=== PATIENT | female | born 1950 | race Caucasian/White ===

== ENCOUNTER 2017-03-16 13:13 | Inpatient (IN) | payer OTHER ==
[~2017-03-16] VITALS: Ht 154.9 cm; Wt 54.1 kg
--- NOTE | ~2017-03-16 | MR32 ---
[facility] A Service of [facility] RADIOLOGY TEXT RESULTS PATIENT: KUSH CRUZ LOCATION: [facility] : 51 UNIT #: [id number] AGE: [address]: TRACE LIGHT MD SEX: F ORDER DR: [id number] [place] [id number] [facility]. [place], [place] [address] [id number] I MR#: [id number] Acc #: [id number] NAME: KUSH CRUZ : 1950 SEX: F STUDY DATE/TIME: 03/16/2017 20:46 UNIT: C3A PCU ROOM: [facility] STUDY DESCRIPTION: MR Cervical Wo Contrast Attending Physician: Trace Light M.D. Ordering Physician: Physician Non-Staff Primary Care Physician: Shubham Soria M.D. MRI CENTER REPORT This report is preliminary unless electronic signature is present. EXAM Cervical MRI HISTORY Patient fell in the bathroom this morning. Right MCA infarct. The patient complains of neck pain after the fall. TECHNIQUE Multiplanar imaging of the cervical spine was performed with short and long TR. FINDINGS Alignment is satisfactory. Degenerative changes are seen throughout the cervical discs. At C3-4, there is mild central disc protrusion. There is no evidence of cord compression. This causes mild central canal narrowing. At C4-5, there is a large right paracentral disc herniation that contacts and slightly flattens the ventral cord to the right of midline. At C5-6, there is a left-sided disc herniation at the entrance to the foramen with left-sided exiting nerve root compression. This also displaces the cord to the right and results in moderately severe central stenosis. The C6-7 and C7-T1 levels are unremarkable. The cord is normal in size and signal. There is no evidence of marrow edema or paraspinous mass. IMPRESSION 1. Large right paracentral disc herniation C4-5. [facility] A Service of [facility] RADIOLOGY TEXT RESULTS PATIENT: KUSH CRUZ LOCATION: [facility] : 51 UNIT #: [id number] AGE: [address]: TRACE LIGHT MD SEX: F ORDER DR: 2. Moderately large left-sided disc herniation C5-6. 3. Mild central disc protrusion C3-4. 4. No evidence of fracture or cord lesion. STAT * RESULT Dictated by... Michael Leija M.D. THIS IS AN ELECTRONICALLY VERIFIED REPORT Michael Leija M.D. at 03/17/2017 3:03 PM MELISSA/darrell TD: 03/17/2017 09:02 JOB #: [id number] MRI CENTER REPORT Page 1 of 1 COPY
--- NOTE | ~2017-03-16 | DS ---
Unit #: [id number] #: [id number] Patient: KUSH CRUZ [id number] [address] [place], [place] [address] [id number] I MR#: [id number] NAME: KUSH CRUZ ROOM: 314 Age: 67 Sex: F Admission Date: 03/16/2017 : 1950 Discharge Date: 03/18/2017 Attending Physician: Marie Light M.D. Primary Care Physician: Shubham Soria M.D. DISCHARGE SUMMARY PRINCIPAL DIAGNOSES 1. Acute right internal carotid artery cerebrovascular accident with complete occlusion of M1 branch. Patient has subsequent left-sided weakness and left-sided facial droop and mild left-sided neglect. 2. Diabetes mellitus type 2, insulin requiring and uncontrolled. Hemoglobin A1c 10.8. 3. Hyperlipidemia, uncontrolled. 4. Hypertension, mildly uncontrolled. 5. Escherichia coli urinary tract infection. 6. High anion gap metabolic acidosis, secondary to starvation now resolved. 7. Right internal carotid atherosclerosis with 60% stenosis, currently being followed by vascular surgeon. 8. Anxiety. 9. Mildly overweight. 10. Fever, secondary to atelectasis. 11. Cervical degenerative disk disease with asymptomatic mild cord compression. 12. Dysphagia, secondary to stroke. CONSULTANTS 1. Dr. Quarles, Neurology. 2. Dr. Soto, Vascular Surgery. 3. Dr. Mata, Endocrinology. PROCEDURES 1. CT of the head without contrast on March 16, 2017 with chronic nonspecific white matter changes. 2. CT of cervical spine without contrast on March 16, 2017, with a right paracentral disk extrusion at C4-C5 causing jasb-nt-pfgxhjig right sided core compression, chronic appearing disk and osteophyte complexes C5-6 causing mild cord compression (left side predominant). 3. Chest x-ray on March 16, 2017 without acute findings. 4. MRI of the brain without contrast on March 16, 2017 with an acute infarct in the right MCA distribution. This is in the right lower frontal and upper temporal lobe around the sylvian fissure and insula. This measures 3.1 x 7 cm in transverse diameter and 2.5 superior to inferior. Slight compression of right lateral ventricle. 5. Moderate chronic ischemic changes around ventricles bilaterally. 6. MRI of cervical spine without contrast on March 16, 2017 with a large right paracentral disk herniation at C4-5. A moderately large left-sided disk herniation at C5-6. No evidence of fracture or cord lesion. 7. CT angiogram of head and neck on March 17, 2017 with abrupt Unit #: [id number] #: [id number] Patient: KUSH CRUZ occlusion of the right M1 segment consistent with distal embolization, poor collateralization noted, mixed calcified and noncalcified plaque at both carotid bifurcations with hemodynamically significant stenosis of 60% on the right, left is approximately 20%. 8. A two-dimensional echocardiogram is currently pending report. 9. Video swallow demonstrating dysphagia and communication deficit. CLINICAL HISTORY AND HOSPITAL COURSE Ms. Cruz is a 67-year-old female with a history of poorly controlled diabetes, hypertension, hyperlipidemia who presents with slurring of speech and facial droop. Time of onset was unclear upon presentation to the ER given patient was having some facial tingling the night prior to presentation. CT scan done in the emergency department was unremarkable and patient was not felt to be a candidate for Alteplase given questionable onset of symptoms. Patient was subsequently admitted for further evaluation. Dr. Quarles was consulted and patient underwent MRI of head and neck with findings as noted above. She did indeed have an acute stroke. She was placed on aspirin in addition to lipid lowering therapy and has been seen by endocrinology in regard to her poorly-controlled diabetes. Patient's deficits have improved slightly during hospitalization. She was seen by PT/OT who felt she was appropriate for [facility] and plan is to discharge to [facility] when bed is available. I have discussed with patient and her family significant modification of risk factors which include better sugar control, statin therapy, aspirin, and blood pressure control. CT angiogram of head and neck revealed some right-sided carotid stenosis. I am currently awaiting evaluation by vascular surgery regarding further intervention whether acutely or perhaps in the future. Patient was also found to have E. coli urinary tract infection. She was initially placed on Rocephin but given she is not swallowing, I will place her on Macrobid and complete a one-week course of antibiotic therapy. She is still significantly weak from her stroke, having difficulty with ambulation. For this reason, I am going to maintain a Banuelos catheter until ambulation improves at [facility] Rehab. Patient did develop a fever during hospitalization, but I suspect this is secondary to atelectasis. This has resolved and infectious workup with the exception of UTI has been negative. I will follow up blood cultures. Patient was seen in consultation by Dr. Mata given her poorly controlled sugars. Plan is for patient to follow up with Dr. Mata on an outpatient basis. She will be discharged on Levemir and NovoLog. I anticipate discharge to [facility] later today with the presumption that patient's pre-cert has been obtained and there are no plans for acute surgical intervention from vascular surgery. DISCHARGE CONDITION Stable. DISCHARGE STATUS Discharge to [facility] Rehab. DISCHARGE MEDICATIONS 1. Tylenol 325 mg p.o. q.4 hours p.r.n. for mild pain or fever. 2. Lexapro 10 mg at bedtime. Unit #: [id number] #: [id number] Patient: KUSH CRUZ 3. Meclizine 25 mg p.o. t.i.d. p.r.n. for dizziness. 4. Xanax 1 mg b.i.d. 5. Lipitor 40 mg at bedtime. 6. Levemir 25 units subcutaneously in the morning. 7. NovoLog medium dose sliding scale with meals. I will note patient will need to be placed on his scheduled dose of NovoLog once intake improves. 8. Aspirin 325 mg daily. 9. Macrobid 100 mg p.o. b.i.d. to stop after six days of therapy. Stop date is March 22, 2017. 10. Lisinopril 10 mg daily. DISCHARGE INSTRUCTIONS 1. The patient was instructed to follow a heart healthy constant carb diet. 2. She will continue Accu-Cheks a.c. and at bedtime at home. 3. She can increase her activity as tolerated. 4. Again, she will be discharged to rehab with her Banuelos until activity improves. At which point, it can be discontinued. FOLLOWUP The patient will follow up with Dr. Tre Baird of outpatient neurology upon discharge from [facility] Re[facility]. The patient should follow up with Dr. Mata upon discharge from [facility] as well for long-term sugar control. Patient will follow up with Dr. Soto of vascular surgery per his recommendations. Time spent on discharge today, 38 minutes. Dictated by... Lexy Aguillon M.D. MANUEL/yessica TD: 03/18/2017 13:46 JOB #: [id number] DISCHARGE SUMMARY Page 1 of 1 X Lexy Aguillon MD X DISCHARGE SUMMARY
--- NOTE | ~2017-03-16 | CT23 ---
[facility] A Service of [facility] RADIOLOGY TEXT RESULTS PATIENT: KUSH CRUZ LOCATION: [facility] 302-01 : 51 UNIT #: [id number] AGE: [address]: TRACE LIGHT MD SEX: F ORDER DR: [id number] [facility] [address] [facility] [facility] [place], [place] [address] [id number] I MR#: [id number] Acc #: [id number] NAME: KUSH CRUZ : 1950 SEX: F STUDY DATE/TIME: 03/17/2017 12:12 [facility] STUDY DESCRIPTION: CT Angio Neck Attending Physician: Trace Light M.D. Ordering Physician: Ashlyn Quarles M.D. Primary Care Physician: Shubham Soria M.D. MEDICAL IMAGING REPORT This report is preliminary unless electronic signature is present EXAM CT scan of the head and neck with contrast with carotid CT angiography. HISTORY Dizziness with falling on 03/16/2017. Right-sided headache for the past 2 days with slurred speech. TECHNIQUE Thin section imaging was obtained from the mid mediastinum to the top of head with contrast. 100 mL of Isovue was used. CT angiography was performed with thick sliding MIPs, curved planar reformats, and 3-D volumetric imaging with surface shaded and volume shaded display. This CT exam was performed with one or more of the following radiation dose reduction techniques: automatic exposure control, adjustment of mA and/or kV according to patient size, and iterative reconstruction. FINDINGS Extravascular structures are unremarkable. The CT angiographic study shows mild soft plaque and calcified plaque in the left subclavian artery proximally with stenosis of about 25%. Both vertebral arteries are widely patent with the left being dominant. There is minimal calcified plaque in the mid cervical portion of the left vertebral but it only narrows the lumen by about 20%. The distal vertebrals and basilar artery are widely patent. In the carotid circulation, there is plaque seen across both bifurcations. The plaque is both calcified and noncalcified. On the left side, there is about 20% stenosis by NASCET criteria. On the right side, the stenosis by NASCET criteria measures 60%. Both cervical internal carotid arteries are widely patent distally. [facility] A Service of [facility] RADIOLOGY TEXT RESULTS PATIENT: KUSH CRUZ LOCATION: C3A PC 302-01 : 51 UNIT #: [id number] AGE: [address]: TRACE LIGHT MD SEX: F ORDER DR: In the intracranial circulation, there is abrupt cutoff of the right M1 segment consistent with distal embolization. There is poor collateralization over the convexity. There is no evidence of aneurysm or vascular malformation. Mild atherosclerotic irregularity is seen in the posterior cerebral arteries proximally on both sides. IMPRESSION 1. Abrupt occlusion of the right M1 segment, consistent with distal embolization with poor collateralization. 2. Mixed calcified and noncalcified plaque at both bifurcations with a hemodynamically significant stenosis of 60% on the right. STAT * RESULT Dictated by... Michael Leija M.D. THIS IS AN ELECTRONICALLY VERIFIED REPORT Michael Leija M.D. at 03/17/2017 3:04 PM MELISSA/wicho TD: 03/17/2017 13:36 JOB #: [id number] MEDICAL IMAGING REPORT Page 1 of 1 COPY
--- NOTE | ~2017-03-16 | EKG ---
PATIENT: KUSH CRUZ UNIT #: [id number] Ventricular Rate: 86 BPM Atrial Rate: 86 BPM P-R Interval: 166 ms QRS Duration: 90 ms Q-T Interval: 390 ms QTC Calculation(Bezet): 466 ms P [place]: 64 degrees Calculated R [place]: 32 degrees Calculated T [place]: 65 degrees Diagnosis Line: Normal sinus rhythm Diagnosis Line: Normal ECG Diagnosis Line: When compared with ECG of 25-AUG-2016 08:48, Diagnosis Line: No significant change was found Diagnosis Line: Confirmed by CHEYANNE HARLEY MD ([id number]) on 03/17/2017 Diagnosis Line: 7:09:40 PM INTERPRETING MD: CRICKET CANTOR
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
--- NOTE | ~2017-03-16 | CT71 ---
[facility] A Service of [facility] RADIOLOGY TEXT RESULTS PATIENT: KUSH CRUZ LOCATION: C3A 314-01 : 52 UNIT #: [id number] AGE: [address]: Sima Jones MD SEX: F ORDER DR: [id number] [facility] [address] [facility]. [place], [place] [address] [id number] I MR#: [id number] Acc #: [id number] NAME: KUSH CRUZ : 1950 SEX: F STUDY DATE/TIME: 03/16/2017 13:43 UNIT: [facility] PCU ROOM: [facility] STUDY DESCRIPTION: CT Head Wo Contrast Attending Physician: Marie Light M.D. Ordering Physician: Gerardo Alatorre M.D. Primary Care Physician: Shubham Soria M.D. MEDICAL IMAGING REPORT This report is preliminary unless electronic signature is present EXAM Head CT, no contrast; 03/16/2017. COMPARISON 08/25/2016 PROCEDURE Axial unenhanced head CT. This CT exam was performed with one or more of the following radiation dose reduction techniques: automatic exposure control, adjustment of mA and/or kV according to patient size, and iterative reconstruction. CLINICAL HISTORY Left facial droop, new this morning. FINDINGS There are moderately extensive nonspecific white matter changes, but these appear stable when compared to the prior study. There is no hemorrhage or mass or hydrocephalus or extraaxial fluid collection or convincing evidence of acute ischemia. The extracranial soft tissues are normal, and the skull base and the calvaria are unremarkable. IMPRESSION Chronic nonspecific white matter changes. No interval change since 08/25/2016. No convincing acute abnormality. Dictated by... John Reyes M.D. THIS IS AN ELECTRONICALLY VERIFIED REPORT John Reyes M.D. at 03/25/2017 4:58 PM TEV/jt [facility] A Service of [facility] RADIOLOGY TEXT RESULTS PATIENT: KUSH CRUZ LOCATION: [facility]3A 314-01 : 52 UNIT #: [id number] AGE: [address]: Sima Jones MD SEX: F ORDER DR: TD: 03/16/2017 20:43 JOB #: [id number] MEDICAL IMAGING REPORT Page 1 of 1 COPY
--- NOTE | ~2017-03-16 | CT52 ---
[facility] A Service of [facility] RADIOLOGY TEXT RESULTS PATIENT: KUSH CRUZ LOCATION: [facility] 314-01 : 51 UNIT #: [id number] AGE: [address]: Sima Jones MD SEX: F ORDER DR: [id number] [facility] [address] [facility]. [place], [place] [address] [id number] I MR#: [id number] Acc #: [id number] NAME: KUSH CRUZ : 1950 SEX: F STUDY DATE/TIME: 03/16/2017 13:46 UNIT: [facility] PCU ROOM: [facility] STUDY DESCRIPTION: CT Cervical Spine Wo Cont Attending Physician: Marie Light M.D. Ordering Physician: Gerardo Alatorre M.D. Primary Care Physician: Shubham Soria M.D. MEDICAL IMAGING REPORT This report is preliminary unless electronic signature is present EXAM Cervical spine CT, no contrast, 03/16/2017 PROCEDURE Axial cervical spine CT without contrast, with multiplanar reformats. This CT exam was performed with one or more of the following radiation dose reduction techniques: Automatic exposure control, adjustment of mA and/or kV according to patient size, and iterative reconstruction. COMPARISON None HISTORY Neck pain for 2 months. FINDINGS There is a loss of lordosis and even a slight degenerative retrolisthesis at 5-6. There is some discogenic and uncovertebral arthropathy, as well as atlantodental degenerative change. The paraspinous tissues are remarkable only for atherosclerotic vascular calcification at the carotid bifurcations. At C2-3, there is no canal or foraminal stenosis. At C3-4, there is no canal stenosis and mild left and no right foraminal stenosis. At 4-5, there is a large right paracentral disc protrusion. This causes right-sided cord compression and probably causes effective at least mild right foraminal stenosis, but there is at least moderate bony left foraminal stenosis. At 5-6, there is a disc and osteophyte complex, canal stenosis, [facility] of [facility] RADIOLOGY TEXT RESULTS PATIENT: KUSH CRUZ LOCATION: [facility] 314-01 : 52 UNIT #: [id number] AGE: [address]: Sima Jones MD SEX: F ORDER DR: probably at least mild cord compression, with bsvxljho-pi-disqyn left and hits-zc-kwkmkzgf right foraminal stenosis. At 6-7 and 7-1, the canal and foramina are normal. IMPRESSION 1. In addition to degenerative changes, there is a right paracentral disc extrusion at 4-5 causing mild or probably rnfv-dh-dcgivapx right side cord compression at that level. 2. A more chronic-appearing disc and osteophyte complex at 5-6 also likely causes mild cord compression, left side predominant. See above for additional alwrr-qb-fhhkc details. Dictated by... John Reyes M.D. THIS IS AN ELECTRONICALLY VERIFIED REPORT John Reyes M.D. at 03/25/2017 4:58 PM TEV/psc TD: 03/16/2017 21:08 JOB #: [id number] MEDICAL IMAGING REPORT Page 1 of 1 COPY
--- NOTE | ~2017-03-16 | CO ---
Unit #: [id number] #: [id number] Patient: KUSH CRUZ [id number] [address] [address] [id number] I MR#: [id number] NAME: KUSH CRUZ ROOM: 314 Age: 67 Sex: F Admission Date: 03/16/2017 : 1950 Attending Physician: Marie Light M.D. Primary Care Physician: Shubham Soria M.D. Consultation Date: 03/18/2017 CONSULTATION REPORT REASON FOR CONSULTATION Cerebrovascular accident. HISTORY OF PRESENT ILLNESS This is a 67-year-old, female, admitted to [facility] after suffering a stroke on Tuesday. She reports that she had experienced TIA-type symptoms the week prior, at least three separate episodes. Each of these resolved and she did not seek medical care. On 03/16/2017, she reports she was getting out of the shower and had been feeling weak. She suffered a fall in the shower, but was able to gather herself enough to go to her primary care physician appointment that she had made in response to her transient ischemic attacks. While being seen she was told that they thought she was having a stroke and she was sent to the emergency room for evaluation and treatment. CTA imaging demonstrates that she has a 60% right internal carotid artery stenosis. PAST MEDICAL HISTORY 1. Diabetes mellitus, on insulin. 2. Depression. 3. Hyperlipidemia. PAST SURGICAL HISTORY 1. Hysterectomy. 2. Gallbladder. 3. Appendectomy. 4. Knee surgery. ALLERGIES Penicillins and sulfa drugs. MEDICATION LIST 1. Lantus 20 units subcu daily. 2. NovoLog sliding-scale insulin. 3. Xanax 1 mg p.o. twice daily. 4. Lexapro 10 mg p.o. at bedtime. 5. Meclizine 25 mg p.o. three times daily. Newly prescribed medications; 1. 325 mg aspirin. 2. 40 mg atorvastatin at bedtime. SOCIAL HISTORY The patient resides at home with her spouse. 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 She denies smoking; however, she has had many years of exposure to secondhand smoke as her spouse smokes. She denies alcohol or drug use. FAMILY HISTORY Mother and father both . Mother from a heart attack in her sleep. Father of lung cancer. REVIEW OF SYSTEMS CONSTITUTIONAL: Denies fever, chills, or sweats. EYES: Right-sided deviation with left-sided neglect. EAR, NOSE, MOUTH AND THROAT: Somewhat difficulty speaking. RESPIRATORY: Negative. CARDIOVASCULAR: Negative. GASTROINTESTINAL: Negative for nausea, vomiting or diarrhea. GENITOURINARY: The patient reports having a urinary tract infection. HEME/LYMPH: Negative. ENDOCRINE: Negative. MUSCULOSKELETAL: Decreased movement of the left side arm and leg. INTEGUMENTARY: Sore to her left thumb, where she fell on a blow dryer that was hot. NEUROLOGIC: Some trouble speaking and some difficulty with movement of the left side of the body. PSYCHIATRIC: History of depression. PHYSICAL EXAMINATION VITAL SIGNS: Temperature 97.5, heart rate 82, respirations 16, O2 saturation 100% on room air, and blood pressure 161/80. GENERAL APPEARANCE: This is a well-developed and well-nourished female, in no acute distress. Answers questions appropriately. Daughter is in the room with her and assists her with answering some questions. HEENT: Normocephalic. Pupils are equal, round, and reactive to light. NECK: Supple with no carotid bruits heard on auscultation. CARDIAC: Regular rate and rhythm with no murmurs noted. LUNGS: Clear with diminished bilateral bases. ABDOMEN: Positive bowel sounds, soft, nontender. No distention. MUSCULOSKELETAL: Moves all extremities; however, the left side is weaker and less coordinated than her right side. VASCULAR: Palpable radial, femoral, dorsalis pedis, posterior tibialis pulses bilaterally. INTEGUMENTARY: Skin is warm and dry. Again she has a lesion to her left thumb from where she has fallen on a hair tray drier operator. NEUROLOGICAL: The patient with symptoms of dysarthria. The patient with mild left-sided neglect. Some visual disturbance in her right eye and she was only able to identify two of three fingers being held in front of her face correctly. Left hand with uncoordinated premises technician and mild tremor with attempts. PSYCHIATRIC: Oriented to person, place, and time. DIAGNOSTIC STUDIES CTA imaging of the head and neck demonstrates 60% right carotid stenosis and 20% left carotid stenosis. LABORATORY AND X-RAY DATA Include sodium 141, potassium 3.9, chloride 109, CO2 of 22, BUN 27, creatinine 0.7, glucose 172, hemoglobin 14.5, hematocrit 42.6, WBC 9.3, and platelets 175. ASSESSMENT AND PLAN Unit #: [id number] #: [id number] Patient: KUSH CRUZ 1. Symptomatic right carotid stenosis. Her carotid stenosis measures 60% blockage on the right, but with her right middle cerebral artery cerebrovascular accident coupled with her transient ischemic attack symptoms in the same territory. This is all consistent with symptomatic carotid stenosis. Our recommendation would be to proceed with right carotid endarterectomy to reduce her risk of future embolic events. She will need to obtain cardiac clearance first. I have discussed her case in detail with Neurology and their recommendation would be to wait at least two weeks prior to performing surgery to limit her risk of hemorrhagic conversion. 2. Hyperlipidemia. Lipid panel indicates hyperlipidemia. She has recently been started on atorvastatin 40 mg. PLAN Will be for patient to discharge to [facility] later today. We will ask Cardiology to see her once there for her to obtain cardiac clearance. We will plan to schedule the surgery after cardiac clearance has been obtained and after her two week waiting period has elapsed. Throughout the exam the patient and her family had all questions answered to their satisfaction and are agreeable with this plan. Dictated by... Uvaldo Albarado APRN for Inna Van/abeba TD: 03/19/2017 12:56 JOB #: [id number] CONSULTATION REPORT Page 1 of 1 X X CONSULTATION REPORT
--- NOTE | ~2017-03-16 | DS ---
Unit #: [id number] #: [id number] Patient: KUSH CRUZ [id number] [address] [place], [place] [address] [id number] I MR#: [id number] NAME: KUSH CRUZ ROOM: 314 Age: 67 Sex: F Admission Date: 03/16/2017 : 1950 Discharge Date: Attending Physician: Marie Light M.D. Primary Care Physician: Shubham Soria M.D. DISCHARGE SUMMARY REVISED REPORT See Addenda PRINCIPAL DIAGNOSES 1. Acute right internal carotid artery cerebrovascular accident with complete occlusion of M1 branch. Patient has subsequent left-sided weakness and left-sided facial droop and mild left-sided neglect. 2. Diabetes mellitus type 2, insulin requiring and uncontrolled. Hemoglobin A1c 10.8. 3. Hyperlipidemia, uncontrolled. 4. Hypertension, mildly uncontrolled. 5. Escherichia coli urinary tract infection. 6. High anion gap metabolic acidosis, secondary to starvation now resolved. 7. Right internal carotid atherosclerosis with 60% stenosis, currently being followed by vascular surgeon. 8. Anxiety. 9. Mildly overweight. 10. Fever, secondary to atelectasis. 11. Cervical degenerative disk disease with asymptomatic mild cord compression. 12. Dysphagia, secondary to stroke. CONSULTANTS 1. Dr. Quarles, Neurology. 2. Dr. Soto, Vascular Surgery. 3. Dr. Mata, Endocrinology. PROCEDURES 1. CT of the head without contrast on March 16, 2017 with chronic nonspecific white matter changes. 2. CT of cervical spine without contrast on March 16, 2017, with a right paracentral disk extrusion at C4-C5 causing [id number] right sided core compression, chronic appearing disk and osteophyte complexes C5-6 causing mild cord compression (left side predominant). 3. Chest x-ray on March 16, 2017 without acute findings. 4. MRI of the brain without contrast on March 16, 2017 with an acute infarct in the right MCA distribution. This is in the right lower frontal and upper temporal lobe around the sylvian fissure and insula. This measures 3.1 x 7 cm in transverse diameter and 2.5 superior to inferior. Slight compression of right lateral ventricle. 5. Moderate chronic ischemic changes around ventricles bilaterally. 6. MRI of cervical spine without contrast on March 16, 2017 with a large right paracentral disk herniation at C4-5. A moderately large Unit #: [id number] #: [id number] Patient: KUSH CRUZ left-sided disk herniation at C5-6. No evidence of fracture or cord lesion. 7. CT angiogram of head and neck on March 17, 2017 with abrupt occlusion of the right M1 segment consistent with distal embolization, poor collateralization noted, mixed calcified and noncalcified plaque at both carotid bifurcations with hemodynamically significant stenosis of 60% on the right, left is approximately 20%. 8. A two-dimensional echocardiogram is currently pending report. 9. Video swallow demonstrating dysphagia and communication deficit. CLINICAL HISTORY AND HOSPITAL COURSE Ms. Cruz is a 67-year-old female with a history of poorly controlled diabetes, hypertension, hyperlipidemia who presents with slurring of speech and facial droop. Time of onset was unclear upon presentation to the ER given patient was having some facial tingling the night prior to presentation. CT scan done in the emergency department was unremarkable and patient was not felt to be a candidate for Alteplase given questionable onset of symptoms. Patient was subsequently admitted for further evaluation. Dr. Quarles was consulted and patient underwent MRI of head and neck with findings as noted above. She did indeed have an acute stroke. She was placed on aspirin in addition to lipid lowering therapy and has been seen by endocrinology in regard to her poorly-controlled diabetes. Patient's deficits have improved slightly during hospitalization. She was seen by PT/OT who felt she was appropriate for [facility] and plan is to discharge to [facility] when bed is available. I have discussed with patient and her family significant modification of risk factors which include better sugar control, statin therapy, aspirin, and blood pressure control. CT angiogram of head and neck revealed some right-sided carotid stenosis. I am currently awaiting evaluation by vascular surgery regarding further intervention whether acutely or perhaps in the future. Patient was also found to have E. coli urinary tract infection. She was initially placed on Rocephin but given she is not swallowing, I will place her on Macrobid and complete a one-week course of antibiotic therapy. She is still significantly weak from her stroke, having difficulty with ambulation. For this reason, I am going to maintain a Banuelos catheter until ambulation improves at [facility]. Patient did develop a fever during hospitalization, but I suspect this is secondary to atelectasis. This has resolved and infectious workup with the exception of UTI has been negative. I will follow up blood cultures. Patient was seen in consultation by Dr. Mata given her poorly controlled sugars. Plan is for patient to follow up with Dr. Mata on an outpatient basis. She will be discharged on Levemir and NovoLog. I anticipate discharge to [facility] later today with the presumption that patient's pre-cert has been obtained and there are no plans for acute surgical intervention from vascular surgery. DISCHARGE CONDITION Stable. DISCHARGE STATUS [facility] Unit #: [id number] #: [id number] Patient: KUSH CRUZ DISCHARGE MEDICATIONS 1. Tylenol 325 mg p.o. q.4 hours p.r.n. for mild pain or fever. 2. Lexapro 10 mg at bedtime. 3. Meclizine 25 mg p.o. t.i.d. p.r.n. for dizziness. 4. Xanax 1 mg b.i.d. 5. Lipitor 40 mg at bedtime. 6. Levemir 25 units subcutaneously in the morning. 7. NovoLog medium dose sliding scale with meals. I will note patient will need to be placed on his scheduled dose of NovoLog once intake improves. 8. Aspirin 325 mg daily. 9. Macrobid 100 mg p.o. b.i.d. to stop after six days of therapy. Stop date is March 22, 2017. 10. Lisinopril 10 mg daily. DISCHARGE INSTRUCTIONS 1. The patient was instructed to follow a heart healthy constant carb diet. 2. She will continue Accu-Cheks a.c. and at bedtime at home. 3. She can increase her activity as tolerated. 4. Again, she will be discharged to rehab with her Banuelos until activity improves. At which point, it can be discontinued. FOLLOWUP The patient will follow up with Dr. Tre Baird of outpatient neurology upon discharge from [facility]. The patient should follow up with Dr. Mata upon discharge from [facility] as well for long-term sugar control. Patient will follow up with Dr. Soto of vascular surgery per his recommendations. Time spent on discharge today, 38 minutes. Dictated by... Lexy Aguillon M.D. MANUEL/ TD: 03/18/2017 13:46 JOB #: [id number] ADDENDUM Please note the patient was seen in consultation by Vascular Surgery and, after discussion with Neurology, the plan is to wait for any surgical intervention for at least two weeks. The patient can be discharged to [facility] if bed is available. Dictated by... Inna Hunt/ TD: 03/18/2017 13:49 JOB #: [id number] ADDENDUM ANTICIPATED DATE OF DISCHARGE Unit #: [id number] #: [id number] Patient: KUSH CRUZ March 21, 2017 HOSPITAL COURSE (CONTINUED) Patient remained in the hospital over the weekend due to the fact that precertification would not be obtained for [facility]. She has remained clinically stable. Her Levemir has been increased slightly by Dr. Mata, but otherwise, she has remained stable. She will be discharged to [facility] on March 21, 2017, after precertification is obtained. DISCHARGE MEDICATIONS 1. Tylenol 325 mg p.o. q.4 hours p.r.n. for pain or fever. 2. Lexapro 10 mg at bedtime. 3. Meclizine 25 mg p.o. t.i.d. p.r.n. for dizziness. 4. Xanax 1 mg p.o. b.i.d. p.r.n. for anxiety. 5. Lipitor 40 mg at bedtime. 6. Lisinopril 10 mg daily. 7. Levemir 30 units subcutaneously in the morning. 8. Medium-dose sliding scale a.c. and at bedtime. 9. Aspirin 325 mg daily. 10. Macrobid 100 mg b.i.d. to stop after dose on March 22, 2017. DISCHARGE INSTRUCTIONS As previously dictated. Dictated by... Inna Hunt/ TD: 03/20/2017 15:48 JOB #: [id number] CC: Soyoselina/invision Please Delete DISCHARGE SUMMARY Page 1 of 1 X Lexy Aguillon MD DISCHARGE SUMMARY
--- NOTE | ~2017-03-16 | CO ---
Unit #: [id number] #: [id number] Patient: KUSH CRUZ [id number] [facility] [address] [place], [place] [address] [id number] I MR#: [id number] NAME: KUSH CRUZ ROOM: 314 Age: 67 Sex: F Admission Date: 03/16/2017 : 1950 Attending Physician: Marie Light M.D. Primary Care Physician: Shubham Soria M.D. Consultation Date: 03/16/2017 CONSULTATION REPORT PRIMARY CARE PHYSICIAN Shubham Soria M.D. REASON FOR CONSULT CVA. PATIENT IDENTIFICATION This is a 67-year-old, right-handed, female, evaluated in the ER T1 at [facility]. SOURCE OF INFORMATION Obtained from the patient, the patient's daughter at the bedside as well as medical record. HISTORY OF PRESENT ILLNESS This is a 67-year-old, right-handed, female with a past medical history of benign paroxysmal positional vertigo, diabetes mellitus, type 2, frequent falls, diverticular disease, migraine headaches, hypertension, depression, anxiety, who presents to [facility] with complaints of new onset focal weakness and slurred speech. The patient's daughter is at the bedside and is helping with history as the patient has slurred speech. Apparently, last week, when they were shopping, she noticed that the patient had sudden onset of left facial weakness and slurred speech that lasted just for a couple of minutes. She states that it actually returned a few minutes later, but then resolved. She states that she tried to get her mother to go to the ER, but the patient refused. She had another episode later on in the week that resolved quickly and she refused further evaluation and treatment. She had made an appointment with her PCP for today. She was having a migraine over the weekend typical for her with right-sided weakness and ear pain. She states that this is her typical headache, but she gets migraines frequently and has the same type of pain. She states it is not any worse, but is persistent. She states that yesterday, she was having some changes in her vision, blurred vision and difficulty focusing. She was not really able to describe beyond that, but apparently did not tell her family. She woke up this morning otherwise feeling okay with the exception of the vision problem that had been ongoing since yesterday. When she went to get a shower and blow dry her hair, she apparently fell and actually got burned by the blow transfer car operator drier as she was unable to move it away from her skin. She has some redness on her left arm and hand and large blister on her left side. She was found by her 's caregiver and was driven to her PCP's office, and it was there that she was instructed to go to the ER for further evaluation. She was admitted here for further workup and Unit #: [id number] #: [id number] Patient: KUSH CRUZ evaluation of her presentation. She had a CT scan of the head done that was negative for any acute intracranial abnormality and CT of the cervical spine was also done that showed some possible cord compression on the right at C4-5 and on the left at C5-6. Both of those dictated reports are pending, voice clips have been noted and imaging reviewed. Otherwise her workup includes an unremarkable white blood cell count of 9.5, hemoglobin 13.8, hematocrit 41.1, platelet count 175. BMP was unremarkable other than her glucose is elevated at 366. Creatinine is 1.0, estimated GFR is 58.7. Her AST is 42, ALT 57, alkaline phosphatase 109. PT was 11.4, INR 1.1, PTT 22.7, CPK 45. Urinalysis is abnormal with 1+ leuks, positive for nitrites, greater than 1000 glucose, 10 to 25 red cells, 50 to 100 white cells, 4+ bacteria, occasional squamous cells. Culture is pending. On exam, the patient's NIH is 7. She is alert. She is oriented, but she has dysarthria. She has left facial paralysis. She has some sensory neglect on the left side. She has normal gaze, but visual finley were concerning for possible hemianopia. She does not have any significant arm or leg weakness, but mild weakness on the left compared to the right, but not significant. She has no pronator drift seen. No ataxia. Again, sensory neglect is noted. Positive dysarthria. She was not a candidate for acute intervention as her last known well was yesterday with vision changes, that she was not considered for code stroke this morning. She denies any exacerbating or alleviating factors, any associated chest pain, shortness of breath, palpitations, loss of consciousness or loss of awareness. She does have frequent falls. She denies any neck pain, numbness or tingling in her extremities or incontinence. PAST MEDICAL HISTORY 1. She was seen at [facility] in 08/2016 for benign paroxysmal positional vertigo, urinary tract infection and uncontrolled diabetes mellitus, type 2. 2. Hypertension. 3. Falls. The patient has had multiple falls over the last year whenever we saw her in August. She also has tremors, cogwheeling tone. She was recommended for outpatient neurologic evaluation and when her vertigo was resolved. She does have a family history of Parkinson disease in her father. 4. Migraines. 5. Diverticular disease. 6. Hypertension. 7. Depression. 8. Anxiety. 9. Appendectomy. 10. Hysterectomy. 11. Cholecystectomy. 12. Lower extremity ORIF. 13. Knee surgery. 14. Kidney stone surgery. 15. Admission to [facility] in 02/2016 for rhabdomyolysis and urinary tract infection. ALLERGIES Penicillin and sulfa. MEDICATIONS Home medications are being reconciled. She does not take any antiplatelet or anticoagulating medications. FAMILY HISTORY Unit #: [id number] #: [id number] Patient: KUSH CRUZ Positive for Parkinson disease in her father. Positive for lung cancer, Hodgkin lymphoma. SOCIAL HISTORY The patient lives with her and is his primary caregiver as he is bed-bound and he has an in-home caregiver. No history of tobacco use, alcohol use, or illicit drug use. REVIEW OF SYSTEMS A 14-point review of systems was attempted with the patient as well as the daughter. Pertinent positives are as discussed above, otherwise negative. PHYSICAL EXAMINATION VITAL SIGNS: Temperature 100.4, pulse 91, respirations 21, blood pressure 182/83, oxygen saturation 100%. Unable to obtain height and weight per Real Time Content as Real Time Content just went down. NEUROLOGIC: The patient is awake, alert, and oriented to person, place, and time as well as events. No right or left confusion. No finger agnosia. She is not aphasic. She does have dysarthria. She has an NIH of 7 with positive dysarthria, facial palsy, sensory neglect and visual field deficit. Cranial nerve exam, she has decreased response to visual finley consistently on the left, concerning for left hemianopia. Extraocular movements are intact. Sensation; she has sensation on the left side of the face, arm and leg, but has some neglect with double simultaneous stimulation. Strength of muscles of facial expression reveals flattening of the nasolabial fold on the left side with assessment of strength of muscle facial evaluation consistently. Hearing is intact to voice. Tongue is midline. Unable to visualize uvula and palate. Head turning and shoulder shrug are unremarkable. Neck is supple. Motor exam; she gives a poor effort on the left arm and left leg. She does not have a drift, but I appreciate more of an effort on the right compared to the left. Sensory exam as discussed above. Gait and Romberg deferred. Reflexes, unable to elicit. She is tremulous on exam with action bilaterally worse on the right compared to the left. Coordination, no past-pointing seen. Normal yoee-kx-tgyy. DIAGNOSTIC STUDIES IMAGING STUDIES: As discussed above. LABORATORY RESULTS: As discussed above. IMPRESSION 1. Clinical concern for right hemispheric cerebrovascular accident, outside window for acute intervention. 2. History of vertigo, likely benign paroxysmal positional. Please see dictation from 08/2016. 3. Abnormal CT of the C-spine done following her fall. Will continue bed rest given her presentation, pending MRI of the brain, MRI of the C-spine and CT angiogram of the head and neck. 4. Chronic falls. 5. Pyuria, culture pending. The patient has been treated with Macrobid. Unit #: [id number] #: [id number] Patient: KUSH CRUZ PLAN We will start the patient on aspirin, give her IV fluids. PT, OT and speech to see; however, we will hold PT, OT pending above imaging evaluation. She will be admitted to the stroke floor and further recommendations pending workup and further clinical course. Case was discussed with Dr. Quarles at the time of evaluation and he agrees with the above assessment and plan. We will follow along with you. We thank you very much for allowing us to assist in the care of this patient. Dictated by... Sakina Kothari A.P.R.N. for Inna Seay/abeba TD: 03/18/2017 03:14 JOB #: [id number] CONSULTATION REPORT Page 1 of 1 X Sakina Kothari APRN CONSULTATION REPORT
--- NOTE | ~2017-03-16 | MR18 ---
[facility] A Service of [facility] RADIOLOGY TEXT RESULTS PATIENT: KUSH CRUZ LOCATION: [facility] 314-01 : 51 UNIT #: [id number] AGE: [address]: Sima Jones MD SEX: F ORDER DR: [id number] [facility] [address] [place], [place] [address] [id number] I MR#: [id number] Acc #: [id number] NAME: KUSH CRUZ : 1950 SEX: F STUDY DATE/TIME: 03/21/2017 11:24 [facility] ROOM: [facility] STUDY DESCRIPTION: MR Brain Wo Contrast Attending Physician: Sima Jones M.D. Ordering Physician: Ashlyn Quarles M.D. Primary Care Physician: Shubham Soria M.D. MRI CENTER REPORT This report is preliminary unless electronic signature is present. EXAM MRI of the brain without contrast, 03/21/2017. COMPARISON MRI brain without contrast, 03/16/2017. HISTORY Left hand weakness, apparently worse. It started yesterday. TECHNIQUE Multisequence, multiplanar imaging of the brain was obtained without contrast. FINDINGS There is a large area of restricted diffusion in the right middle cerebellar artery distribution involving the right frontal lobe with some extension into the anterior right parietal lobe and superior right temporal lobe. Associated increased T2 signal is seen without any associated hemorrhage. Overall region of the stroke has increased from 6.7 x 3.3 cm on 03/16/2017 to 11.1 x 4.1 cm today. There is mass effect on the adjacent right lateral ventricle without any measurable significant midline shift. Hyperintense T2 signal is noted in the periventricular and subcortical white matter, left thalamus, and chris. Vascular flow voids of the major cerebellar arteries and dural venous sinuses demonstrate asymmetrically decreased vascular flow voids in the right MCA distribution, It is incompletely characterized in the current study. Refer to CT-A head and neck from 03/17/2017. IMPRESSION 1. There is an evolving right middle cerebral artery distribution stroke that has overall increased in size when compared to the prior region of stroke in MRI, dated 03/16/2017. It has increased in size from 6.7 STS. [facility] A Service of [facility] RADIOLOGY TEXT RESULTS PATIENT: KUSH CRUZ LOCATION: [facility] 314-01 : 51 UNIT #: [id number] AGE: [address]: Sima Jones MD SEX: F ORDER DR: x 3.3 cm to 11.1 x 4.1 cm. 2. No hemorrhage conversion is noted yet. 3. There is effacement of the right lateral ventricle without any midline shift. 4. Refer to CT angiogram head and neck from 03/17/2017, which demonstrates significant abnormality involving the right MCA. 5. A few other scattered hyperintense T2 signal lesions are noted in the supratentorial white matter and the chris, likely related to chronic microvascular ischemic change and old lacunar infarcts, stable. 6. Findings were discussed with Dr. Quarles at 2:30 p.m. on 03/21/2017. Dictated by... Lion Everett M.D. THIS IS AN ELECTRONICALLY VERIFIED REPORT Lion Everett M.D. at 03/24/2017 5:22 PM CPR/av TD: 03/21/2017 19:16 JOB #: [id number] MRI CENTER REPORT Page 1 of 1 COPY
--- NOTE | ~2017-03-16 | CT17 ---
[facility] A Service of [facility] & [facility] RADIOLOGY TEXT RESULTS PATIENT: KUSH CRUZ LOCATION: [facility] 302-01 : 51 UNIT #: [id number] AGE: [address]: TRACE LIGHT MD SEX: F ORDER DR: [id number] [facility] [address]. [place], [place] [address] [id number] I MR#: [id number] Acc #: [id number] NAME: KUSH CRUZ : 1950 SEX: F STUDY DATE/TIME: 03/17/2017 12:12 UNIT: [address] ROOM: [facility] STUDY DESCRIPTION: CT Angio Head Attending Physician: Trace Light M.D. Ordering Physician: Ashlyn Quarles M.D. Primary Care Physician: Shubham Sorai M.D. MEDICAL IMAGING REPORT This report is preliminary unless electronic signature is present EXAM CT scan of the head with contrast with carotid CT angiography. HISTORY Dizziness with falling on 03/16/2017. Right-sided headache for the past 2 days with slurred speech. FINDINGS Please see CT angio neck for results. Dictated by... Michael Leija M.D. THIS IS AN ELECTRONICALLY VERIFIED REPORT Michael Leija M.D. at 03/17/2017 3:04 PM MELISSA/wicho TD: 03/17/2017 13:37 JOB #: [id number] MEDICAL IMAGING REPORT Page 1 of 1 COPY
--- NOTE | ~2017-03-16 | A ---
[facility] Nutrition Therapy DATE: 03/18/17 Patient: KUSH SUKHJINDER CRUZ Physician: [email or web address] Address: [address] [place] [address] Room/Bed: [address] [place] [address], Zip: [place] [address] Admit Date: 03/16/17 Date of : 51 Height: 5 1 Weight: 123 55.8 NUTRITIONAL ASSESSMENT: REASON: Stroke protocol consult 67 yo female admitted for TIA PMH: DM, migraines, HTN, depression, anxiety, diverticular disease, cholecystectomy, left ORIF Anthropometrics: Ht: 61" Wt: 56.9 kg BMI: 23.7 Labs: Gluc 334 BUN 24 ALT 57 Accuchecks 334-366 Meds: Lipitor, zofran, novolog, NaCl, levemir I/O & Bowel function: 1237/3700, last BM 03/15 Skin Integrity: Blisters left outer thigh/ 1st and 3rd finger Redness to rectal area Edema: LIANET 3+ (noted on admission) Diet: Mechanical soft diet/ no mixed consistencies/ nectar thick liquids Assessment: Chart reviewed, events noted. 67 yo female admitted for stroke/ TIA. RD consulted per stroke protocol. RESOURCE CONSERVATION MANAGER evaluated the pt today, and diet was advanced per RESOURCE CONSERVATION MANAGER recommendations (see above diet order). RD spoke with the pt and her daughter at bedside. Pt reports having a poor appetite and only consuming a few bites of lunch today. RD stressed the importance of adequate nutritional intake, and suggested supplements. Pt is agreeable to Magic Cup supplements. Pt has been accepted at [facility], awaiting precert per . Please see recommendations below. Dx: Inadequate oral intake RT Dx, stroke AEB RESOURCE CONSERVATION MANAGER evaluation, poor intake reported by the pt. Intervention: 1. Diet per RESOURCE CONSERVATION MANAGER 2. Magic Cup TID Monitoring, Evaluation and Goals: 1. Oral intake; tolerate 50-100% of meals and supplements 2. Improve labs; glucose, BUN [facility] Nutrition Therapy DATE: 03/18/17 Patient: KUSH CRUZ Physician: [email or web address] Address: [address] Room/Bed: [address] [place] [address], Zip: [place] [address] Admit Date: 03/16/17 Date of : 51 Height: 5 1 Weight: 123 55.8 Recommendations: 1. Continue RESOURCE CONSERVATION MANAGER as appropriate to determine least restrictive diet tolerated by the pt. Advance diet per RESOURCE CONSERVATION MANAGER recommendations, adding a consistent carbohydrate diet restriction. 2. Magic Cup (sugar free orange vanilla) TID with meals for supplemental nutrition. 3. Encourage adequate nutritional intake as needed. Pt is at mild-moderate nutritional risk. RD will follow up per protocol. Respectfully, RICKEY CR RD, LD [facility] and Nutrition[facility] cc: client file
--- NOTE | ~2017-03-16 | MR18 ---
[facility] A Service of [facility] & [facility] RADIOLOGY TEXT RESULTS PATIENT: KUSH CRUZ LOCATION: [facility] 302-01 : 51 UNIT #: [id number] AGE: [address]: TRACE LIGHT MD SEX: F ORDER DR: [id number] [facility] [address] [facility]. [place], [place] [address] [id number] I MR#: [id number] Acc #: [id number] NAME: KUSH CRUZ : 1950 SEX: F STUDY DATE/TIME: 03/16/2017 20:46 UNIT: [address] ROOM: [facility] STUDY DESCRIPTION: MR Brain Wo Contrast Attending Physician: Trace Light M.D. Ordering Physician: Physician Non-Staff Primary Care Physician: Shubham Soria M.D. MRI CENTER REPORT This report is preliminary unless electronic signature is present. EXAM Brain MRI. HISTORY Patient fell in the bathroom earlier this morning. Patient noted to have left arm and leg weakness and left facial weakness with slurred speech. TECHNIQUE Multiplanar imaging brain was performed with short and long TR and compared to previous examination from 08/25/2016. FINDINGS On diffusion weighted images, there is a large area of abnormal restricted diffusion in the right lower frontal and upper temporal lobe centered around the sylvian fissure and insula in the MCA distribution. The area of involvement measures at maximum about 3.1 x 7 cm in transverse diameter and 2.5 cm from superior to inferior. There is slight compression of the right lateral ventricle, but no midline shift. No hemorrhages are noted. Moderately severe chronic ischemic changes are seen around the ventricles bilaterally and in the mid chris. Extraaxial structures are unremarkable. IMPRESSION Acute infarct right MCA distribution as described and measured above. Moderate chronic ischemic changes around the ventricles bilaterally. STAT * RESULT Dictated by... Michael Leija M.D. THIS IS AN ELECTRONICALLY VERIFIED REPORT Michael Leija M.D. at 03/17/2017 3:03 PM RLF/pc [facility]. [facility] A Service of [facility] RADIOLOGY TEXT RESULTS PATIENT: KUSH CRUZ LOCATION: [facility] 302-01 : 51 UNIT #: [id number] AGE: [address]: TRACE LIGHT MD SEX: F ORDER DR: TD: 03/17/2017 08:25 JOB #: [id number] MRI CENTER REPORT Page 1 of 1 COPY
--- NOTE | ~2017-03-16 | DS ---
Unit #: [id number] #: [id number] Patient: KUSH CRUZ [id number] [address] [address] [id number] I MR#: [id number] NAME: KUSH CRUZ ROOM: 314 Age: Sex: F Admission Date: 03/16/2017 : 1950 Discharge Date: Attending Physician: Marie Light M.D. Primary Care Physician: Shubham Soria M.D. DISCHARGE SUMMARY ADDENDUM Please note the patient was seen in consultation by Vascular Surgery and, after discussion with Neurology, the plan is to wait for any surgical intervention for at least two weeks. The patient can be discharged to [facility] if bed is available. Dictated by... Lexy Aguillon M.D. MANUEL/darrell TD: 03/18/2017 13:49 JOB #: [id number] DISCHARGE SUMMARY Page 1 of 1 X Lexy Aguillon MD X DISCHARGE SUMMARY
--- NOTE | ~2017-03-16 | CO ---
Unit #: [id number] #: [id number] Patient: KUSH CRUZ [id number] [address] [place], [place] [address] [id number] I MR#: [id number] NAME: KUSH CRUZ ROOM: 314 Age: 67 Sex: F Admission Date: 03/16/2017 : 1950 Attending Physician: Marie Light M.D. Primary Care Physician: Shubham Soria M.D. Consultation Date: 03/17/2017 CONSULTATION REPORT REASON FOR CONSULTATION Uncontrolled diabetes mellitus. HISTORY OF PRESENT ILLNESS This is a pleasant 67-year-old female, who has a history of type 2 diabetes mellitus for several years, poor compliance with diet, poorly controlled, who presented to the emergency room with the left-sided facial droop, slurred speech, difficulty in swallowing, and left-sided weakness. She was diagnosed with right middle cerebral artery CVA. Her blood sugar has been running mg/dL. I have been asked to see the patient for further management. PAST MEDICAL HISTORY Type 2 diabetes mellitus, hypertension, depression and anxiety, diverticular disease, rhabdomyolysis in the past. PAST SURGICAL HISTORY Appendectomy, hysterectomy, cholecystectomy, knee surgery, kidney stone surgery, and ureteral stent placement. REVIEW OF SYSTEMS The patient has a very slurred speech. Unable to obtain a good review of system. However, reports to have left-sided weakness and difficulty in swallowing. The rest of the review of systems is unremarkable. SOCIAL HISTORY Lives at home with her . No alcohol or tobacco. FAMILY HISTORY Notable for lung cancer . ALLERGIES Penicillin and sulfa drugs. HOME MEDICATIONS List was reviewed. Currently, the patient is on Levemir 30 units in the morning daily and low-dose supplemented sliding scale, Lipitor 40 mg daily, aspirin, Lovenox 40 mg every 24 hours, Zofran. PHYSICAL EXAMINATION GENERAL: She is lying comfortably. VITAL SIGNS: She has low-grade temperature 99.9, pulse 100, respiratory rate 16, and blood pressure 156/87. Unit #: [id number] #: [id number] Patient: KUSH CRUZ HEENT: EOMI. Pupils are equally reactive to light. NECK: Supple. No thyromegaly noted. CHEST: Good air entry. CVS: Regular rhythm. No murmurs. ABDOMEN: Soft and nontender. Bowel sounds positive. EXTREMITIES: No edema noted. NEUROLOGIC: She has slurred speech and left-sided weakness. SKIN: No rashes. DIAGNOSTIC STUDIES LABORATORY RESULTS: Reviewed. Chemistry; glucose 334, 124. CO2 is 19, CK total 2320, A1c is 10.8. ASSESSMENT 1. Poorly controlled type 2 diabetes mellitus. 2. Cerebrovascular accident, right middle cerebral artery with dysphagia, slurred speech, and left-sided weakness. PLAN I discussed with the patient and family at length about need for controlling the diabetes mellitus to avoid future complications, including renal failure, CVA, and cardiovascular disease. Change the patient's Levemir to 25 units daily in the morning. Start on medium dose supplemented sliding scale which is 1 unit for every 25 mg blood sugars above 150. Continue monitoring blood sugars every four hourly. The patient is n.p.o. She failed swallowing study today. The patient will be re-evaluated in the morning if she feels again she will need either IV fluids or tube feeds. We will continue to follow the patient for further management. Dictated by... Inna Fermin/abeba TD: 03/18/2017 13:54 JOB #: [id number] CONSULTATION REPORT Page 1 of 1 X Magdalena Mata MD CONSULTATION REPORT
--- NOTE | ~2017-03-16 | CR72 ---
[facility] A Service of [facility] & [facility] RADIOLOGY TEXT RESULTS PATIENT: KUSH CRUZ LOCATION: [facility] 302-01 : 51 UNIT #: [id number] AGE: [address]: TRACE LIGHT MD SEX: F ORDER DR: [id number] [facility] [address]. [place], [place] [address] [id number] I MR#: [id number] Acc #: [id number] NAME: KUSH CRUZ : 1950 SEX: F STUDY DATE/TIME: UNIT: [address] ROOM: [facility] STUDY DESCRIPTION: CR Chest Single View Portable Attending Physician: Trace Light M.D. Ordering Physician: Gerardo Alatorre M.D. Primary Care Physician: Shubham Soria M.D. MEDICAL IMAGING REPORT This report is preliminary unless electronic signature is present EXAM Chest portable 03/16/2017 1346 hours HISTORY 67-year-old woman with left-sided weakness today, history of hypertension and diabetes. COMPARISON 08/25/2016 FINDINGS Portable upright chest demonstrates normal heart size. Mediastinal, hilar, and aortic contours are normal. The lungs are clear and there are no effusions. IMPRESSION No acute cardiopulmonary findings. No change from 08/25/2016. Dictated by... Carola Solorzano M.D. THIS IS AN ELECTRONICALLY VERIFIED REPORT Carola Solorzano M.D. at 03/17/2017 9:08 AM SMM/chip TD: 03/16/2017 20:36 JOB #: [id number] MEDICAL IMAGING REPORT Page 1 of 1 COPY
[~2017-03-16 13:13] MED LIST: ALPRAZOLAM PO; ASPIRIN PO; BACTRIM DS TABL1 TAB PO; BUTALB-ACETAMI1 EACH PO; CEFTRIAXON1 G/PIGGYB IV; CIPRO PO; CIPROFLOXACIN500 M1 PO; DORIBAX500 MG IV; ESGIC CAPSULE1 CAP PO; GLIPIZIDE10 MG PO; GLUCOTROL; GLUCOTROL PO; IBUPROFEN PO; IMITREX PO; INVANZ1 G/VIA1 IV; LANTUS100 U/M1; LANTUS100 U/ML SQ; LANTUS100 U/ML SUBQ; LEXAPRO PO; LIPITOR PO; LISINOPRIL PO; LOPRESSOR PO; MECLIZINE HCL12.5 M2 PO; NAMENDA10 MG; NEURONTIN300 MG PO; NORCO 10-325 TA1 TAB PO; NORCO 7.5/325 T1 TAB PO; NORVASC PO; NOVOLOG100 U/M2; NOVOLOG100 U/ML; NOVOLOG100 UNITS/; PERCOCET5/325 PO; PHENERGAN12.5 MG PO; PHENERGAN25 M1 PO; PHENERGAN25 MG PO; PREDNISONE PO; REGLAN PO; RELAFEN500 MG PO; ROCEPHIN1 G/VIA1 IV; VICODIN 5/1 TAB 5/50 PO; VOLTAREN75 MG PO; XANAX0.5 MG PO; XANAX1 MG PO; ZOLOFT PO; ZOLOFT50 MG PO
[2017-03-16 13:45] LABS: BASOPHIL% 0.4 % (0-2.5); HEMATOCRIT 41.1 % (35.0-45.0); HEMOGLOBIN 13.8 gm/dL (12.0-16.0); LYMPHOCYTE# 1.2 X10e3 (1.0-3.5); MEAN CELL VOLUME 88.2 FL (83-96); MEAN CORPUSCULAR HEMOGLOBIN 29.6 PG (28-34); MEAN CORPUSCULAR HGB CONC 33.5 g/dL (30-36); MEAN PLATELET VOLUME 8.4 FL (6.5-11.5); MONOCYTE# 0.6 X10e3 (0-1.0); NEUTROPHIL# 7.7 X10e3 (1.5-7.1); NEUTROPHIL% 80.6 % (40-75); PLATELET COUNT 175 X10e3 (140-420); RED BLOOD COUNT 4.66 X10e (3.90-5.30); RED CELL DISTRIBUTION WIDTH 12.8 % (11.0-15.5); WHITE BLOOD COUNT 9.5 X10e3 (4.0-10.5)
[2017-03-16 13:58] LABS: POC - CKMB <1.0 ng/mL (0.0-7.9); POC - TROPONIN <0.05 ng/mL (<=0.05)
[2017-03-16 14:00] LABS: DIFF IND NO
[2017-03-16 14:13] LABS: ALBUMIN SERUM 4.1 g/dL (3.5-5.0); BILIRUBIN, DIRECT 0.1 mg/dL (0.0-0.2); BILIRUBIN,INDIRECT 0.5 mg/dL (0.0-0.9); BILIRUBIN,TOTAL 0.6 mg/dL (0.2-2.0); CALCIUM SERUM 9.5 mg/dL (8.4-10.2); GLOM FILT RATE Estimated 58.7 mL/min (>60); POTASSIUM 4.4 mmol/L (3.5-5.1); PROTEIN TOTAL SERUM 8.3 g/dL (6.0-8.3)
[2017-03-16 14:15] LABS: INR 1.1; PARTIAL THROMBOPLASTIN TIME 22.7 SECONDS (23.5-31.3); PROTHROMBIN TIME (PATIENT) 11.4 SECONDS (10.0-11.7)
[2017-03-16 14:29] LABS: URINE SOURCE CLEAN CATCH
[2017-03-16 14:32] LABS: URINE APPEARANCE CLOUDY; URINE BILIRUBIN NEG (NEG); URINE BLOOD NEG (NEG); URINE COLOR YELLOW; URINE GLUCOSE >1000 MG/DL (NEG); URINE KETONE 1+ (NEG); URINE LEUKOCYTE ESTERASE 1+ (NEG); URINE NITRATE POS (NEG); URINE PROTEIN NEG (NEG); URINE UROBILINOGEN 0.2 MG/DL (NEG)
[2017-03-16 14:35] LABS: CULTURE INDICATED? YES; URINE BACTERIA AUWI 4+ (NEGATIVE); URINE SQUAMOUS EPITHELIAL CELL OCC /[HPF]; UWBCS1 AUWI 50-100 (0-5)
[2017-03-16] MEDS ORDERED: ANTIVERT PO (14:39)
[2017-03-16] MEDS ORDERED: PATIENT'S PHARMACY (14:39)
[2017-03-16 18:50] LABS: CHOLESTEROL 212 mg/dL (0-200); HDL CHOLESTEROL 44 mg/dL (35-95); LDL/HDL RATIO 3 RATIO (0-4); TRIGLYCERIDES 111 mg/dL (10-160)
[2017-03-16 18:54] LABS: LDL CHOLESTEROL 146 mg/dL (-130)
[2017-03-17 05:40] LABS: BASOPHIL# 0.1 X10e3 (0-0.3); BASOPHIL% 0.6 % (0-2.5); HEMATOCRIT 42.6 % (35.0-45.0); HEMOGLOBIN 14.5 gm/dL (12.0-16.0); LYMPHOCYTE# 1.8 X10e3 (1.0-3.5); MEAN CELL VOLUME 88.5 FL (83-96); MEAN CORPUSCULAR HEMOGLOBIN 30.1 PG (28-34); MEAN PLATELET VOLUME 8.4 FL (6.5-11.5); MONOCYTE# 0.5 X10e3 (0-1.0); MONOCYTE% 5.6 % (3.0-12.0); NEUTROPHIL# 6.9 X10e3 (1.5-7.1); NEUTROPHIL% 74.8 % (40-75); PLATELET COUNT 175 X10e3 (140-420); RED BLOOD COUNT 4.81 X10e (3.90-5.30); RED CELL DISTRIBUTION WIDTH 12.4 % (11.0-15.5); WHITE BLOOD COUNT 9.3 X10e3 (4.0-10.5)
[2017-03-17 05:46] LABS: DIFF IND NO
[2017-03-17 06:40] LABS: BUN/CREATININE RATIO 26.66; CALCIUM SERUM 9.1 mg/dL (8.4-10.2); CREATININE SERUM 0.9 mg/dL (0.6-1.4); GLOM FILT RATE Estimated 66.7 mL/min (>60); POTASSIUM 4.1 mmol/L (3.5-5.1)
[2017-03-18 08:46] LABS: BUN/CREATININE RATIO 38.57; CALCIUM SERUM 8.4 mg/dL (8.4-10.2); CREATININE SERUM 0.7 mg/dL (0.6-1.4); GLOM FILT RATE Estimated 90.3 mL/min (>60); MAGNESIUM 2.2 mg/dL (1.6-3.0); POTASSIUM 3.9 mmol/L (3.5-5.1)
== END 2017-03-21 17:51 | DRG 65 ==
LOC: CED 13:13 → CEDOF 15:54 → C3A PCU 15:54 → CED 16:42 → CEDOF 16:42 → C3A PCU 17:36 → CEDOF 17:36 → C3A PCU 17:36
PROVIDERS: Emergency Medicine; Internal Medicine
PROC: B32GYZZ Computerized Tomography (CT Scan) of Bilateral Vertebral Arteries using Other Contrast (ICD-10-PCS; principal; 2017-03-17)
PROC: B328YZZ Computerized Tomography (CT Scan) of Bilateral Internal Carotid Arteries using Other Contrast (ICD-10-PCS; 2017-03-17)
DX: I63.231 Cerebral infarction due to unspecified occlusion or stenosis of right carotid arteries (principal); E87.2 Acidosis; E11.65 Type 2 diabetes mellitus with hyperglycemia; R13.10 Dysphagia, unspecified; G95.20 Unspecified cord compression; G81.94 Hemiplegia, unspecified affecting left nondominant side; N39.0 Urinary tract infection, site not specified; J98.11 Atelectasis; Z88.2 Allergy status to sulfonamides; Z88.0 Allergy status to penicillin; Z91.81 History of falling; G43.909 Migraine, unspecified, not intractable, without status migrainosus; I10 Essential (primary) hypertension; E78.5 Hyperlipidemia, unspecified; F32.9 Major depressive disorder, single episode, unspecified; F41.9 Anxiety disorder, unspecified; R29.707 NIHSS score 7; R47.1 Dysarthria and anarthria; Z85.118 Personal history of other malignant neoplasm of bronchus and lung; B96.20 Unspecified Escherichia coli [E. coli] as the cause of diseases classified elsewhere; E66.3 Overweight; M50.30 Other cervical disc degeneration, unspecified cervical region; R47.81 Slurred speech; Z79.4 Long term (current) use of insulin
CPT/HCPCS: 70450; 70496; 70498; 70551; 71010; 72125; 72141; 74230; 80048; 80061; 80076; 81003; 82550; 82553; 82947; 83036; 83735; 84443; 84484; 85025; 85610; 85730; 86140; 87040; 87086; 87088; 87186; 92507; 92522-GN; 92526; 92610; 92611; 93005; 97110; 97112; 97116; 97162; 97167; 97535; 99285; G8978-GP; G8979-GP; G8987-GO; G8988-GO; G8996-GN; G8997-GN; G8998-GN; J0696; J1650; J1815; J2405; Q9967